=== PATIENT | female | born 1985 | race Caucasian/White ===

== ENCOUNTER 2016-03-13 17:58 | Emergency (ER) | payer MEDICAID ==
--- NOTE | 2016-03-13 18:54 | Emergency Department Report ---
Chief Complaint: Chest Pain Stated Complaint: CHEST PAIN Time Seen by Provider: 03/13/16 18:48 - HPI History of Present Illness: 30-year-old female presents today with chest pain 2 days. Patient describes her pain as hurting under her left breast and reproducible. Denies shortness of breath, abdominal pain, nausea, vomiting. Denies change in activity. - ROS Review of Systems: Per HPI - Exam Vital Signs: Vital Signs 03/13/16 18:19 Temperature 99.2 F Pulse Rate 72 Respiratory 18 Rate Blood Pressure 105/63 O2 Sat by Pulse 100 Oximetry Physical Exam: General: 30-year-old female in no acute distress. Well-developed, well- nourished. CV: Regular rate and rhythm. Chest wall: Tenderness to palpation of chest wall under her left breast. Lungs: Clear to auscultation bilaterally. MSE screening note: Focused history and physical exam performed. Due to findings the following was ordered: ED Disposition for MSE Condition: Stable
[2016-03-13 19:42] LABS: Basophils % (Auto) 0.3 % (0.0-1.8); Eosinophils % (Auto) 2.3 % (0.0-4.3); Hematocrit 37.5 % (30.3-42.9); Mean Corpuscular HGB Conc 32 % (30-34); Mean Corpuscular Hemoglobin 26 pg (28-32); Mean Corpuscular Volume 82 fl (79-97); Platelet Count 223 K/mm3 (140-440); Red Blood Count 4.56 M/mm3 (3.65-5.03); Red Cell Distribution Width 15.7 % (13.2-15.2); White Blood Count 5.3 K/mm3 (4.5-11.0)
[2016-03-13 20:22] LABS: Alanine Aminotransferase 6 units/L (7-56); Albumin 4.1 g/dL (3.9-5); Albumin/Globulin Ratio 1.1 %; Alkaline Phosphatase 60 units/L (35-129); Anion Gap 16 mmol/L; BUN/Creatinine Ratio 13.33; Bilirubin,Total 0.5 mg/dL (0.1-1.2); Blood Urea Nitrogen 8 mg/dL (7-17); Calcium 9.2 mg/dL (8.4-10.2); Carbon Dioxide 23 mmol/L (22-30); Chloride 101.9 mmol/L (98-107); Creatine Kinase 54 units/L (30-135); Glucose 87 mg/dL (65-100); Lipase 32 units/L (13-60); Potassium 3.7 mmol/L (3.6-5.0); Sodium 137 mmol/L (137-145); Total Protein 7.9 g/dL (6.3-8.2)
[2016-03-13 20:24] LABS: Bilirubin,Direct < 0.2 mg/dL (0-0.2); Bilirubin,Indirect 0.3 mg/dL; Creatine Kinase MB < 1.0 ng/mL (0.0-4.0)
[2016-03-14 02:52] VITALS: BP 106/66
--- NOTE | 2016-03-14 10:45 | XRay Report ---
CHEST TWO VIEWS: 03/13/16 17:58:00 CLINICAL: Chest pain. COMPARISON: None FINDINGS: Normal heart and pulmonary vasculature. The lungs are normally expanded and clear.The bones and soft tissues are unremarkable. IMPRESSION: Normal chest.
--- NOTE | 2016-03-19 16:49 | ED Elopement Review ---
ED Pt Elopement review - Results review Lab results: Laboratory Tests 03/13/16 03/13/16 03/13/16 19:14 19:14 23:42 WBC 5.3 RBC 4.56 Hgb 12.0 Hct 37.5 MCV 82 MCH 26 L MCHC 32 RDW 15.7 H Plt Count 223 Lymph % (Auto) 52.4 H [place] % (Auto) 5.9 Eos % (Auto) 2.3 Baso % (Auto) 0.3 Lymph # 2.8 [place] # 0.3 Eos # 0.1 Baso # 0.0 Seg Neutrophils % 39.1 L Seg Neutrophils # 2.1 Sodium 137 Potassium 3.7 Chloride 101.9 Carbon Dioxide 23 Anion Gap 16 BUN 8 Creatinine 0.6 L Estimated GFR > 60 BUN/Creatinine Ratio 13.33 Glucose 87 Calcium 9.2 Total Bilirubin 0.5 Direct Bilirubin < 0.2 Indirect Bilirubin 0.3 AST 12 ALT 6 L Alkaline Phosphatase 60 Total Creatine Kinase 54 CK-MB (CK-2) < 1.0 CK-MB (CK-2) Rel Index 1.8 Troponin T < 0.010 < 0.010 Total Protein 7.9 Albumin 4.1 Albumin/Globulin Ratio 1.1 Lipase 32 - Call Back decision Pt Call Back Decision: No action required
== END 2016-03-13 19:14 | disposition left against medical advice (07) ==
LOC: ED 17:58
DX: R07.9 Chest pain, unspecified (principal); Z53.21 Procedure and treatment not carried out due to patient leaving prior to being seen by health care provider
CPT/HCPCS: 36415; 71020; 80048; 80074; 82550; 82553; 83690; 84484; 85025